=== PATIENT | female | born 1955 | race Caucasian/White ===

== ENCOUNTER → 2016-05-13 | Outpatient (CLI) | payer BC ==
--- NOTE | 2016-05-14 19:56 | XA ---
Exam Date: 05/13/16 Patient's Age: 60 HEIGHT: 63.0 in. WEIGHT: 127.0 lbs. INDICATIONS: Back pain, , hypertension, hypothyroid, hysterectomy, postmenopausal, tobacco user. FRACTURES: TREATMENTS: Black cohosh, calcium, flax seed oil, levothyroxine, Premarin, psyllium, vitamin C, zinc. ASSESSMENT: The BMD measured at Femur Neck Mean is 0.898 g/cm2 with a T-score of -1.0. Bone density is up to 10% below young normal. This patient is considered normal according to World Health Organization (WHO) criteria. Fracture risk is low. The BMD measured at Femur Troch Mean is 0.740 g/cm2 with a T-score of -1.0 is considered moderately low. Fracture risk is moderate. Treatment is advised if there are other risk factors. RESULTS: Site Region Age Classification T-Score BMD AP Spine L1-L4 59.3 Normal -0.2 1.165 g/cm2 Dual Femur Neck Mean 59.3 Normal -1.0 0.898 g/cm2 Dual Femur Troch Mean 59.3 N/A -1.0 0.749 g/cm2 Dual Femur Total Mean 59.3 Normal -0.8 0.913 g/cm2 World Health Organization - Criteria for post-menopausal, women: Normal: T-Score at or above -1 SD Osteopenia: T-Score between -1 and -2.5 SD Osteoporosis: T-Score at or below -2.5 SD RECOMMENDATION: Pharmacologic treatment recommendations & Initiate pharmacologic treatment: - In those with hip or vertebral (clinical or asymptomatic) fractures - In those with T -scores <-2.5 at the femoral neck, total hip, or lumbar spine by DXA - In postmenopausal women and men age 50 and older with low bone mass (T-score between -1.0 and -2.5, osteopenia) at the femoral neck, total hip, or lumbar spine by DXA and a 10-year hip fracture probability >3 % or a 10-year major osteoporosis-related fracture probability >20% based on the [place]-adapted WHO absolute fracture risk model (Fracture Risk Algorithm (FRAX); www. NOF.org and www.shef.ac.uk/FRAX) FOLLOW UP: People with diagnosed cases of osteoporosis or at high risk for fracture should have regular bone mineral density tests. For patients eligible for Medicare, routine testing is allowed once every 2 years. The testing frequency can be increased to 1 year for patients who have rapidly progressing disease, those who are reviewing or discontinuing medial therapy to restore bone mass, or have additional risk factors. People with diagnosed cases of osteoporosis or osteopenia should be regularly tested for bone mineral density. For patient eligible for Medicare, routine testing is allowed once every 2 years. The testing frequency can be increased to 1 year for patients who have rapidly progressing disease, or for those who are receiving medial therapy to restore bone mass. [facility] -- ARIANE Castillo [phone] - FAX: [phone] [facility]
== END ==
LOC: MW.DI 09:27
PROVIDERS: ATTEND Nurse Practitioner Family
DX: Z78.0 Asymptomatic menopausal state (principal); M51.36 Other intervertebral disc degeneration, lumbar region
CPT/HCPCS: 77080; 77080-26

== ENCOUNTER 2017-01-22 08:47 | Day surgery (SDC) | payer BC ==
[~2017-01-22 08:47] MED LIST: Bupivacaine 25%/EPINEPHrine/PF 30 ML ONE; Lactated Ringers 1,000 ML IV SCH
[2017-01-22] MEDS ORDERED: ceFAZolin 2 GM in Premix Bag 1 BAG IV ONE (09:00)
[2017-01-22] MEDS ORDERED: Bupivacaine 0.25%/EPINEPHrine 1:200,000 10 ML SDV INJECT ONE (09:00)
[2017-01-22] MEDS ORDERED: Acetaminophen/HYDROcodone 325-5 MG Tab PO PRN (09:00)
[2017-01-22] MEDS ORDERED: Lidocaine 2% 5 ML SDV ONE (09:20)
[2017-01-22] MEDS ORDERED: fentaNYL 100 MCG/2 ML SDV ONE (09:20)
[2017-01-22] MEDS ORDERED: Midazolam 1 MG/ML 2 ML SDV ONE (09:20)
[2017-01-22] MEDS ORDERED: Ondansetron 4 MG/2 ML SDV ONE (09:20)
[2017-01-22] MEDS ORDERED: Propofol 200 MG/20 ML SDV ONE (09:20)
[2017-01-22] MEDS ORDERED: Bupivacaine 25%/EPINEPHrine/PF 60 ML ONE (09:21)
--- NOTE | 2017-01-22 09:47 | PCM.PREANE ---
Preanesthetic Assessment - Procedure Proposed Procedure: RIGHT RING FINGER INCISION/REPAIR - Anesthesia/Transfusion/Family Hx Anesthesia History: Prior Anesthesia Without Reaction Family History of Anesthesia Reaction: No Transfusion History: No Prior Transfusion(s) Intubation History: Unknown - Review of Systems General: No Symptoms, Other (s/p multiple surgeries) Pulmonary: Other (smoker) Cardiovascular: Other (HTN and Hypercholesterolemia) Gastrointestinal: No Symptoms Neurological: No Symptoms Other: Reports: None, Thyroid Problems (hypothyroid) - Physical Assessment NPO Status Date: 01/21/17 NPO Status Time: 23:00 O2 Sat by Pulse Oximetry: 97 Respiratory Rate: 16 Vital Signs: Last Vital Signs Temp 98.2 F 01/22/17 09:19 Pulse 58 L 01/22/17 09:19 Resp 16 01/22/17 09:19 BP 139/71 01/22/17 09:19 Pulse Ox 97 01/22/17 09:19 Height: 5 ft 3 in Weight: 124 lb ASA Class: 3 Mental Status: Alert & Oriented x3 Airway Class: Mallampati = 2 Dentition: Reports: Missing Tooth/Teeth, Caries Thyro-Mental Finger Breadths: 3 Mouth Opening Finger Breadths: 3 ROM/Head Extension: Full Lungs: Clear to Auscultation, Normal Respiratory Effort Cardiovascular: Regular Rate, Regular Rhythm, No Murmurs Other: wearing glasses - Allergies Allergies/Adverse Reactions: Allergies Allergy/AdvReac Type Severity Reaction Status Date / Time meloxicam Allergy Muscle Verified 01/17/17 12:17 Aches mometasone furoate Allergy Swelling Verified 01/17/17 12:17 [From Nasonex] Sulfa (Sulfonamide Allergy Fever Verified 01/17/17 12:17 Antibiotics) - Blood Product(s) Available: None - Anesthesia Plan Pre-Op Medication Ordered: None - Acknowledgements Anesthesia Type Planned: General Anesthesia (LMA) Pt an Appropriate Candidate for the Planned Anesthesia: Yes Alternatives and Risks of Anesthesia Discussed w Pt/Guardian: Yes Pt/Guardian Understands and Agrees with Anesthesia Plan: Yes PreAnesthesia Questionnaire HEENT History: Reports: Allergic Rhinitis Other HEENT History: wears glasses Cardiovascular History: Reports: High Cholesterol, Hypertension Gastrointestinal History: Reports: None BODY ENGINEER History: Reports: Musculoskeletal History: Reports: Other (See Below) Other Musculoskeletal History: Scoliosis Endocrine/Metabolic History: Reports: Hypothyroidism Dermatologic History: Reports: Psoriasis - Past Surgical History Head Surgeries/Procedures: Reports: None HEENT Surgical History: Reports: Naso-Sinus Surgery, Oral Surgery Other HEENT Surgeries/Procedures: has one lower dental implant GI Surgical History: Reports: Appendectomy, Colonoscopy Female Surgical History: Reports: Breast Biopsy, Hysterectomy, Tubal Ligation - SUBSTANCE USE Smoking Status *Q: Current Every Day Smoker Tobacco Use Within Last Twelve Months: Cigarettes Recreational Drug Use History: No - HOME MEDS Home Medications: Home Meds Calcium Carbonate/Vitamin D3 [Calcium 500 + Vit D 400] 1 tab PO DAILY 01/17/17 [ History] Cyanocobalamin (Vitamin B-12) [Vitamin B-12] 1,000 mcg PO DAILY 01/17/17 [ History] Estrogens, Conjugated [Premarin] 0.625 mg PO DAILY 01/17/17 [History] Flaxseed Oil 1,000 mg PO DAILY 01/17/17 [History] Hydrocodone/Acetaminophen [Hydrocodon-Acetaminoph 7.5-325] 1 tab PO Q4H PRN 05/31 [History] Levothyroxine Sodium [Levo-T] 75 mcg PO DAILY 01/17/17 [History] Potassium Chloride 10 meq PO DAILY 01/17/17 [History] Psyllium Husk [Psyllium] 400 mg PO DAILY 01/17/17 [History] Rosuvastatin [Crestor] 5 mg PO DAILY 01/17/17 [History] cloNIDine [Catapres] 0.1 mg PO DAILY 01/17/17 [History] - CURRENT (IN HOUSE) MEDS Current Meds: Current Medications Hydrocodone Bitart/Acetaminophen (Hope 325-5 Mg) 1 tab PO Q4H PRN PRN Reason: Pain Lactated Ringer's (Ringers, Lactated) 1,000 mls @ 125 mls/hr IV ASDIRECTED COLE Last Admin: 01/22/17 09:22 Dose: 125 mls/hr Discontinued Medications Bupivacaine HCl/Epinephrine Bitart (Marcaine 0.25%/Epinephrine 1:200,000) 10 ml INJECT ONETIME ONE Stop: 01/22/17 09:01 Fentanyl (Sublimaze) Confirm Administered Dose 200 mcg .ROUTE .STK-MED ONE Stop: 01/22/17 09:21 Cefazolin Sodium/Dextrose 2 gm (/ Premix) 50 mls @ 100 mls/hr IV ONETIME ONE Stop: 01/22/17 09:29 Bupivacaine HCl/Epinephrine Bitart (Sensorc Mpf 0.25%-Epi 1:486315) Confirm Administered Dose 30 mls @ as directed .ROUTE .STK-MED ONE Stop: 01/22/17 08:12 Bupivacaine HCl/Epinephrine Bitart (Sensorc Mpf 0.25%-Epi 1:[id number]) Confirm Administered Dose 60 mls @ as directed .ROUTE .STK-MED ONE Stop: 01/22/17 09:22 Lidocaine (Xylocaine-Mpf 2%) Confirm Administered Dose 5 ml .ROUTE .STK-MED ONE Stop: 01/22/17 09:21 Midazolam HCl (Versed 1 Mg/Ml) Confirm Administered Dose 2 mg .ROUTE .STK-MED ONE Stop: 01/22/17 09:21 Ondansetron HCl (Zofran) Confirm Administered Dose 4 mg .ROUTE .STK-MED ONE Stop: 01/22/17 09:21 Propofol (Diprivan 20 Ml) Confirm Administered Dose 200 mg .ROUTE .STK-MED ONE Stop: 01/22/17 09:21
[2017-01-22] MEDS ORDERED: Sodium Chloride 0.9% 20 ML ONE (10:05)
[2017-01-22] MEDS ORDERED: ceFAZolin 1 GM Vial ONE (10:05)
[2017-01-22] MEDS ORDERED: ePHEDrine 50 MG/ML SDV ONE (10:11)
[2017-01-22] MEDS ORDERED: Phenylephrine/Normal Saline 100 MCG/ML 10 ML Syringe ONE (10:15)
[2017-01-22] MEDS ORDERED: Ketorolac 30 MG/ML SDV ONE (10:40)
--- NOTE | 2017-01-22 12:12 | PCM48HPAN ---
Post Anesthesia Note - EVALUATION WITHIN 48HRS OF ANESTHETIC Vital Signs in Normal Range: Yes Patient Participated in Evaluation: Yes Respiratory Function Stable: Yes Airway Patent: Yes Cardiovascular Function Stable: Yes Hydration Status Stable: Yes Pain Control Satisfactory: Yes Nausea and Vomiting Control Satisfactory: Yes Mental Status Recovered: Yes
--- NOTE | 2017-01-22 12:12 | PCM.POSTAN ---
POST ANESTHESIA ASSESSMENT - MENTAL STATUS Mental Status: Alert, Oriented - RESPIRATORY Respiratory Status: Respiratory Rate WNL, Airway Patent, O2 Saturation Stable - CARDIOVASCULAR CV Status: Pulse Rate WNL, Blood Pressure Stable - GASTROINTESTINAL GI Status: No Symptoms - POST OP HYDRATION Hydration Status: Adequate & Stable
--- NOTE | 2017-01-22 16:21 | PCM.OPNOTE ---
- General Post-Op/Procedure Note Date of Surgery/Procedure: 01/22/17 Operative Procedure(s): repair of collateral ligament of the right ring finger Pre Op Diagnosis: right ring finger ligament disruption Post-Op Diagnosis: Same Anesthesia Technique: General LMA, Local Primary Surgeon: Amirah Little Crate Opener: Mei Mejia Condition: Good Free Text/Narrative:: Intake & Output 01/22/17 01/22/17 01/22/17 07:59 15:59 23:59 Intake Total 1500 Balance 1500
--- NOTE | 2017-01-24 19:58 | OR ---
SURGEON: ENRRIQUE ARIZMENDI MD DATE OF PROCEDURE: 01/22/2017 PREOPERATIVE DIAGNOSIS: Right ring finger ligament disruption of the proximal interphalangeal joint. POSTOPERATIVE DIAGNOSIS: Right ring finger ligament disruption of the proximal interphalangeal joint. PROCEDURE: Repair of right ring finger collateral ligament disruption. ANESTHESIA: General LMA with local. GOURMET COFFEE ATTENDANT: NADIA Martins. INDICATIONS: Ms. Pelletier is a 61-year-old female who was seen today in evaluation for ligament disruption of the right ring finger. She had a dislocation here and still has some lateral movement. It unfortunately continues to be inflamed and caused difficulty, indicating a lack of healing and laxity persistent. We discussed reconstruction versus repair and she would like to proceed. Risks were including, but not limited to, bleeding, infection, damage to underlying or overlying structures, possible need for future interventions, possible scarring. PROCEDURE IN DETAIL: After informed consent was obtained and placed on the chart, the patient was brought to the operating theater and laid in supine position. After adequate general LMA anesthesia was obtained, the area was prepped and draped and a time- out was completed to confirm side and site. Attention was then paid to dissection over the lateral aspect of the right ring finger. Dissection was carried through the skin and subcutaneous tissues at the lateral aspect just dorsal to the neurovascular bundle. Dissection was carried through down to the extensor mechanism and then laterally around to visualize all of the components. It was appreciated to have disrupted collateral ligament and thus this was plicated and repaired using deep Prolene sutures in a buried fashion. Once adequately repaired, the lateral laxity was appreciated to be when we repaired and then attention was paid to irrigation and closure of the skin using a 5-0 nylon in a running fashion. Once adequately repaired, the patient was placed in an ulnar gutter hand based splint. We made a plaster. All counts and needles were correct at the end of the case. The patient tolerated the procedure well. FOLLOWUP INSTRUCTIONS: The patient was given a prescription for pain control and discharged home in stable condition. She will see us in 10 to 14 days sooner if any problems, questions, or concerns. CHRISSY / AYLIN /[id number] MTDQi
== END 2017-01-22 12:30 | disposition home or self-care (01) ==
LOC: MW.SDS 08:47
PROVIDERS: ATTEND Plastic Surgery
DX: S63.634A Sprain of interphalangeal joint of right ring finger, initial encounter (principal); F32.9 Major depressive disorder, single episode, unspecified; E78.00 Pure hypercholesterolemia, unspecified; I10 Essential (primary) hypertension; E03.9 Hypothyroidism, unspecified; Z88.2 Allergy status to sulfonamides; Z88.8 Allergy status to other drugs, medicaments and biological substances; Z79.899 Other long term (current) drug therapy; Z90.49 Acquired absence of other specified parts of digestive tract; Z98.51 Tubal ligation status; Z90.710 Acquired absence of both cervix and uterus; Z98.890 Other specified postprocedural states; F17.210 Nicotine dependence, cigarettes, uncomplicated; W23.0XXA Caught, crushed, jammed, or pinched between moving objects, initial encounter
CPT/HCPCS: 26540; J0690; J1885; J2250; J2405; J3010; J7120; 01810; J2704

== ENCOUNTER 2018-08-25 10:46 | Day surgery (SDC) | payer BC ==
[2018-08-25] MEDS ORDERED: Betamethasone Acetate/Betamethasone Sod Phosphate 30 MG/5 ML MDV ONE (12:03)
[2018-08-25] MEDS ORDERED: Ropivacaine 0.5% 5 MG/ML 30 ML SDV ONE (12:03)
[2018-08-25] MEDS ORDERED: Lidocaine 2% 5 ML SDV ONE (12:03)
[2018-08-25] MEDS ORDERED: Iopamidol 200-M 10 ML vial ITHECAL ONE (12:04)
--- NOTE | 2018-08-25 19:44 | OR ---
SURGEON: Elly Baldwin D.O. DATE OF PROCEDURE: 08/25/2018 PRIMARY SURGEON: Elly Baldwin D.O. OPERATING ROOM STAFF PRESENT: 1. Hong Gambino RT. 2. Richard Jean Baptiste RN. 3. Letty Guillaume RN. 4. Radha Puckett, RN. PREOPERATIVE DIAGNOSES: 1. Chronic lumbosacral back pain. 2. Thoracolumbar scoliosis. 3. Lumbar radiculopathy. 4. Lumbar degenerative disk disease. 5. Lumbar spondylosis. 6. Lumbar spinal stenosis. 7. Left lower extremity radiculopathy. POSTOPERATIVE DIAGNOSES: 1. Chronic lumbosacral back pain. 2. Thoracolumbar scoliosis. 3. Lumbar radiculopathy. 4. Lumbar degenerative disk disease. 5. Lumbar spondylosis. 6. Lumbar spinal stenosis. 7. Left lower extremity radiculopathy. PROCEDURE PERFORMED: 1. Caudal epidural steroid injection. 2. Fluoroscopic guidance for needle placement. 3. Local with oral Valium for sedation. SCREENING QUESTIONS: The patient answered "no" to all of the following questions: 1. Are you allergic to latex? 2. Do you have a bleeding disorder? 3. Do you have any current local or systemic infections? 4. Are you taking any anti-inflammatories or blood thinners? 5. Do you have any joint replacements, heart valve replacements, or a pacemaker? DESCRIPTION OF PROCEDURE: The patient had the procedure thoroughly explained including all possible risks, benefits and alternatives. Consent was signed in my clinic indicating understanding and willingness to proceed. The patient presented to [facility] and was escorted to the dressing room to disrobe and change into a hospital gown. Preoperative vital signs were taken and stable. The patient reported that Valium was taken prior to the procedure. The patient was brought back to the procedure room and placed in the prone position on the procedure room table. A pillow was placed under the hips in order to flatten the lumbar lordosis. The back was prepped with ChloraPrep and sterilely draped. All personnel in the operating room were dressed in appropriate attire including surgical scrubs, head and shoe covers. This was to ensure sterility while in the treatment room. During the time fluoroscopy was in use, all personnel in the operating room wore lead linares with thyroid collars. Sterile technique was used throughout the procedure. The patient was awake and conversant throughout the procedure. There was no evidence of infection at the site of needle insertion. Skeletal landmarks were identified under fluoroscopy for the caudal epidural. Skin was anesthetized with 2% lidocaine with a sterile 27-gauge 1.5 inch needle. Then a 20-gauge Tuohy epidural needle was placed in the epidural space with loss of resistance technique under fluoroscopic guidance. No heme, cerebrospinal fluid, or paresthesias were noted. Isovue-200 contrast dye was injected in 0.2 cubic centimeter increments and seen to outline the epidural space in both AP and lateral views. There was no intravascular flow pattern observed under live fluoroscopy. Then 12 milligrams of Celestone and 3cc ropivicaine 0.5% was slowly injected after negativeaspiration. The patient tolerated the procedure well. Vital signs were stable during and after the procedure. The staff escorted the patient to the recovery area and the patient was released in stable condition after a brief stay in the recovery room monitored by the nurse. The patient was given both oral and written discharge and follow up instructions with recommendation to follow up given for 2-3 weeks. The patient voiced understanding including understanding of those signs and symptoms that would require emergency care. The patient knows how to contact the office if there are any additional problems or questions in the meantime. PREOPERATIVE PAIN: 5/10. POSTOPERATIVE PAIN: 0/10. FOLLOWUP: In the Pain Clinic in 3 weeks. MIROSLAVA / AYLIN /[id number] MTDQi
== END 2018-08-25 13:13 | disposition home or self-care (01) ==
LOC: MW.SDS 10:46
PROVIDERS: ATTEND Anesthesiology
DX: M51.16 Intervertebral disc disorders with radiculopathy, lumbar region (principal); M48.061 Spinal stenosis, lumbar region without neurogenic claudication; M47.26 Other spondylosis with radiculopathy, lumbar region; G89.29 Other chronic pain; I10 Essential (primary) hypertension; E78.00 Pure hypercholesterolemia, unspecified; E03.9 Hypothyroidism, unspecified; F17.210 Nicotine dependence, cigarettes, uncomplicated; M41.9 Scoliosis, unspecified; M19.90 Unspecified osteoarthritis, unspecified site; M51.36 Other intervertebral disc degeneration, lumbar region; M47.816 Spondylosis without myelopathy or radiculopathy, lumbar region; M79.18 Myalgia, other site; Z88.2 Allergy status to sulfonamides; Z88.8 Allergy status to other drugs, medicaments and biological substances; Z79.891 Long term (current) use of opiate analgesic; Z79.899 Other long term (current) drug therapy
CPT/HCPCS: 62323; J0702; J2795; Q9966; J2001

== ENCOUNTER 2018-10-01 10:29 | Day surgery (SDC) | payer BC ==
[~2018-10-01 10:29] MED LIST changes: +Betamethasone Acetate/Betamethasone Sod Phosphate 30 MG/5 ML MDV EPIDUR ONE; -Bupivacaine 25%/EPINEPHrine/PF 30 ML ONE; +Iopamidol 200-M 10 ML vial ITHECAL ONE; -Lactated Ringers 1,000 ML IV SCH; +Lidocaine 2% 5 ML SDV INJECT ONE; +Ropivacaine 0.5% 5 MG/ML 30 ML SDV INJECT ONE
[2018-10-01] MEDS ORDERED: Lidocaine 2% 5 ML SDV ONE (11:46)
--- NOTE | 2018-10-01 19:21 | OR ---
SURGEON: Elly Baldwin D.O. DATE OF PROCEDURE: 10/01/2018 PRIMARY SURGEON: Elly Baldwin D.O. ASSISTANTS: OR staff present: 1. Hong Ma. 2. Richard Jean Baptiste. 3. Manav Frank. 4. Hong Gambino. WOUND CLASS: I. PREOPERATIVE DIAGNOSES: 1. Lumbar degenerative disk disease. 2. Lumbar spinal stenosis. 3. Lumbar radiculopathy. POSTOPERATIVE DIAGNOSES: 1. Lumbar degenerative disk disease. 2. Lumbar spinal stenosis. 3. Lumbar radiculopathy. PROCEDURE PERFORMED: 1. Caudal epidural steroid injection. 2. Fluoroscopic guidance for needle placement. 3. Local with oral Valium for sedation. SCREENING QUESTIONS: The patient answered "no" to all of the following questions: 1. Are you allergic to latex? 2. Do you have a bleeding disorder? 3. Do you have any current local or systemic infections? 4. Are you taking any anti-inflammatories or blood thinners? 5. Do you have any joint replacements, heart valve replacements, or a pacemaker? DESCRIPTION OF PROCEDURE: The patient had the procedure thoroughly explained including all possible risks, benefits and alternatives. Consent was signed in my clinic indicating understanding and willingness to proceed. The patient presented to [facility] and was escorted to the dressing room to disrobe and change into a hospital gown. Preoperative vital signs were taken and stable. The patient reported that Valium was taken prior to the procedure. The patient was brought back to the procedure room and placed in the prone position on the procedure room table. A pillow was placed under the hips in order to flatten the lumbar lordosis. The back was prepped with ChloraPrep and sterilely draped. All personnel in the operating room were dressed in appropriate attire including surgical scrubs, head and shoe covers. This was to ensure sterility while in the treatment room. During the time fluoroscopy was in use, all personnel in the operating room wore lead linares with thyroid collars. Sterile technique was used throughout the procedure. The patient was awake and conversant throughout the procedure. There was no evidence of infection at the site of needle insertion. Skeletal landmarks were identified under fluoroscopy for the caudal epidural. Skin was anesthetized with 2% lidocaine with a sterile 27-gauge 1.5 inch needle. Then a 20-gauge Tuohy epidural needle was placed in the epidural space with loss of resistance technique under fluoroscopic guidance. No heme, cerebrospinal fluid, or paresthesias were noted. Isovue-200 contrast dye was injected in 0.2 cubic centimeter increments and seen to outline the epidural space in both AP and lateral views. There was no intravascular flow pattern observed under live fluoroscopy. Then 12 milligrams of Celestone was slowly injected after negative aspiration. The patient tolerated the procedure well. Vital signs were stable during and after the procedure. The staff escorted the patient to the recovery area and the patient was released in stable condition after a brief stay in the recovery room monitored by the nurse. The patient was given both oral and written discharge and follow up instructions with recommendation to follow up given for 2-3 weeks. The patient voiced understanding including understanding of those signs and symptoms that would require emergency care. The patient knows how to contact the office if there are any additional problems or questions in the meantime. PREOPERATIVE PAIN LEVEL: 10/10. POSTOPERATIVE PAIN LEVEL: 0/10. PLAN: Followup in the Pain Clinic in 3 weeks. MIROSLAVA / AYLIN /[id number] MARS
== END 2018-10-01 13:05 ==
LOC: MW.SDS 10:29
PROVIDERS: ATTEND Anesthesiology
DX: M51.16 Intervertebral disc disorders with radiculopathy, lumbar region (principal); M48.061 Spinal stenosis, lumbar region without neurogenic claudication; M12.88 Other specific arthropathies, not elsewhere classified, other specified site; M41.85 Other forms of scoliosis, thoracolumbar region; M79.18 Myalgia, other site; I10 Essential (primary) hypertension; E78.00 Pure hypercholesterolemia, unspecified; E03.9 Hypothyroidism, unspecified; F17.210 Nicotine dependence, cigarettes, uncomplicated; Z88.6 Allergy status to analgesic agent; Z88.2 Allergy status to sulfonamides; Z88.8 Allergy status to other drugs, medicaments and biological substances; Z79.891 Long term (current) use of opiate analgesic; Z79.899 Other long term (current) drug therapy
CPT/HCPCS: 62323; J2001